=== PATIENT | male | born 1955 | race Caucasian/White ===

== ENCOUNTER 2018-10-01 10:21 | Observation (INO) ==
[2018-10-01] MEDS ORDERED: ASPIRIN 325 MG TABLET PO STA (11:12)
[2018-10-01] MEDS ORDERED: ENOXAPARIN 100 MG/ML SYRINGE SUBCUT STA (11:12)
[2018-10-01 12:17] LABS: Basophils % 0.7 % (0.0-0.8); Eosinophils # 0.2 10*3/uL (0.0-0.87); Hematocrit 42.5 VOL% (42.0-52.0); Hemoglobin 14.6 GM/DL (14.0-18.0); Immature Granulocytes % 0.4 %; Immature Granulocytes Absolute 0.02 #; Lymphocytes % 18.2 % (21.2-54.2); Mean Corpuscular HGB Conc 34.4 GM/DL (32-36); Mean Corpuscular Hemoglobin 32 PG (27-34); Mean Corpuscular Volume 91.6 FL (87-102); Mean Platelet Volume 9.3 FL (9.6-12.0); Monocytes # 0.6 10*3/uL (0.11-0.8); Monocytes % 10.2 % (1.7-12.7); Neutrophils # 3.6 10*3/uL (1.4-7.4); Neutrophils % 67.5 % (38.7-73.9); Platelet Count 250 T/CUMM (130-400); Red Blood Count 4.64 MC/CUMM (3.8-5.5); Red Cell Distribution Width 12.8 % (9.3-17.3); White Blood Count 5.4 T/CUMM (4-12)
[2018-10-01 12:34] LABS: Albumin 3.8 G/DL (3.4-5.0); Bilirubin,Total 0.4 MG/DL (0.2-1.0); Calcium 8.7 MG/DL (8.5-10.1); Potassium 4.1 MMOL/L (3.5-5.1); Total Protein 7.5 G/DL (6.4-8.3)
[2018-10-01] MEDS ORDERED: ONDANSETRON 4 MG/2 ML VIAL IV PRN (12:47)
[2018-10-01] MEDS ORDERED: ACETAMINOPHEN 325 MG TABLET PO PRN (12:47)
[2018-10-01] MEDS ORDERED: LORazepam 1 MG TABLET ONE (14:06)
[2018-10-01] MEDS ORDERED: LORazepam 1 MG TABLET PO STA (14:11)
[2018-10-01] MEDS ORDERED: PNEUMOCOCCAL VACCINE (13 VALENT) 0.5 ML SYRINGE IM ONE (15:27)
[2018-10-01] MEDS: DOCUSATE SODIUM 100 MG CAPSULE PO SCH (21:48)
[2018-10-02 04:21] LABS: Risk Ratio 5.2; VLDL CHOLESTEROL 49.4 MG/DL
[2018-10-02] MEDS ORDERED: ASPIRIN EC 325 MG TABLET PO SCH (09:00)
[2018-10-02] MEDS ORDERED: LISINOPRIL 20 MG TABLET PO SCH (09:00)
[2018-10-02] MEDS ORDERED: MULTIVITAMIN (CENTRUM) TABLET PO SCH (09:00)
[2018-10-02] MEDS ORDERED: PANTOPRAZOLE 40 MG TABLET PO SCH (09:00)
[2018-10-02] MEDS: DOCUSATE SODIUM 100 MG CAPSULE PO SCH (10:35)
[2018-10-02 12:22] VITALS: BP 135/86
== END 2018-10-02 14:06 | disposition home or self-care (01) ==
LOC: N.ED 10:21 → N.EDINP 10:21 → N.4E 14:11
PROVIDERS: ADMIT Family Medicine; ATTEND Family Medicine

== ENCOUNTER 2020-01-22 18:29 | Observation (INO) ==
[2020-01-22] MEDS ORDERED: LABETALOL 20 MG/4 ML SYRINGE IV STA (18:54)
[2020-01-22 19:02] LABS: Basophils % 0.4 % (0.0-0.8); Eosinophils # 0.1 10*3/uL (0.0-0.87); Eosinophils % 0.7 % (0.00-10.9); Hematocrit 37.2 VOL% (42.0-52.0); Hemoglobin 12.5 GM/DL (14.0-18.0); Immature Granulocytes % 0.6 %; Immature Granulocytes Absolute 0.06 #; Lymphocytes # 1.1 10*3/uL (1.4-4.0); Lymphocytes % 10.7 % (21.2-54.2); Mean Corpuscular HGB Conc 33.6 GM/DL (32-36); Mean Corpuscular Volume 92.5 FL (87-102); Mean Platelet Volume 8.9 FL (9.6-12.0); Monocytes % 8.7 % (1.7-12.7); Neutrophils % 78.9 % (38.7-73.9); Platelet Count 296 T/CUMM (130-400); Red Blood Count 4.02 MC/CUMM (3.8-5.5); Red Cell Distribution Width 13.1 % (9.3-17.3); White Blood Count 10.2 T/CUMM (4-12)
[2020-01-22 19:12] LABS: INR 1.1; PT Patient Result 11.5 SECS (9.8-11.9)
[2020-01-22 19:23] LABS: Alanine Aminotransferase 17 U/L (16-61); Albumin 3.6 G/DL (3.4-5.0); Alkaline Phosphatase 59 U/L (45-117); Aspartate Amino Transferase 18 U/L (0-37); Bilirubin,Total < 0.39 MG/DL (0.2-1.0); Blood Urea Nitrogen 10 MG/DL (7-18); Calcium 9.1 MG/DL (8.5-10.1); Estimated Glom Filtration Rate 86 ML/MIN; Glucose 107 MG/DL (74-106); Osmolality,Calculated 262.5 MOS/KG (273-304); Total Protein 7.6 G/DL (6.4-8.3)
[2020-01-22] MEDS ORDERED: ONDANSETRON 4 MG/2 ML VIAL IV PRN (20:24)
[2020-01-22] MEDS ORDERED: ASPIRIN EC 325 MG TABLET PO SCH (20:30)
[2020-01-23 02:07] LABS: Basophils % 0.4 % (0.0-0.8); Eosinophils # 0.1 10*3/uL (0.0-0.87); Eosinophils % 2.5 % (0.00-10.9); Hematocrit 33.9 VOL% (42.0-52.0); Hemoglobin 11.2 GM/DL (14.0-18.0); Immature Granulocytes % 0.5 %; Immature Granulocytes Absolute 0.03 #; Lymphocytes # 0.9 10*3/uL (1.4-4.0); Lymphocytes % 16.5 % (21.2-54.2); Mean Corpuscular Volume 93.9 FL (87-102); Mean Platelet Volume 9.2 FL (9.6-12.0); Monocytes % 11.5 % (1.7-12.7); Neutrophils % 68.6 % (38.7-73.9); Platelet Count 258 T/CUMM (130-400); Red Blood Count 3.61 MC/CUMM (3.8-5.5); Red Cell Distribution Width 13.1 % (9.3-17.3); White Blood Count 5.6 T/CUMM (4-12)
[2020-01-23 02:36] LABS: Albumin 3.2 G/DL (3.4-5.0); Bilirubin,Total 0.8 MG/DL (0.2-1.0); Calcium 9.1 MG/DL (8.5-10.1); Osmolality,Calculated 266.2 MOS/KG (273-304); Total Protein 6.8 G/DL (6.4-8.3)
[2020-01-23] MEDS ORDERED: NITROGLYCERIN SL 0.4 MG TABLET SL PRN (06:52)
[2020-01-23] MEDS ORDERED: PANTOPRAZOLE 40 MG VIAL IV SCH (09:00)
[2020-01-23] MEDS ORDERED: lisinopriL 20 MG TABLET PO SCH (09:00)
[2020-01-23] MEDS ORDERED: AMOXICILLIN 500 MG CAPSULE PO SCH (09:00)
[2020-01-23] MEDS ORDERED: amLODIPine 2.5 MG TABLET PO SCH (09:00)
[2020-01-23] MEDS ORDERED: MULTIVITAMIN (CENTRUM) TABLET PO SCH (09:00)
[2020-01-23] MEDS ORDERED: ASPIRIN EC 81 MG TABLET PO SCH (09:30)
[2020-01-23 16:48] VITALS: BP 134/99
[2020-01-23] MEDS ORDERED: ATORVASTATIN 20 MG TABLET PO SCH (21:00)
== END 2020-01-23 18:12 | disposition home or self-care (01) ==
LOC: N.ED 18:29 → N.EDINP 18:29 → N.TELEN 21:56
PROVIDERS: ADMIT Family Medicine; ATTEND Family Medicine